=== PATIENT | female | born 1985 | race Caucasian/White ===

== ENCOUNTER 2022-10-23 01:20 | Emergency (ER) | payer OTHER ==
[2022-10-23 01:32] VITALS: BP 139/82; PULSE 80; RESP 16; TEMP 97.4
[2022-10-23] MEDS ORDERED: CEPHALEXIN 500 MG CAP PO STA (01:49)
--- NOTE | 2022-10-23 01:51 | ED ---
General Adult HPI - General Chief complaint: Extremity Problem,Nontraumatic Stated complaint: r leg infection Time Seen by Provider: 10/23/22 01:32 Source: patient Mode of arrival: ambulatory Limitations: no limitations - History of Present Illness Initial comments: This is a 37-year-old female with no past medical history presents emergency department for pain and swelling noted to the posterior aspect of her right upper leg. The patient stated that she had a cyst in this area over the last several years but stated over the last several days became more painful and over the last 1 day became tender to touch. The patient was reading online and said that it might cause her to so she came into the emergency department. The patient denied any fevers, chills as well as any nausea and vomiting. The patient stated that the cyst became more swollen and did start draining minimal purulent fluid today. The patient denied any other acute pain or complaints at this time. - Related Data Previous Rx's Medication Instructions Recorded Cephalexin [Keflex] 500 mg PO Q6HR 1 Days #20 cap 10/23/22 Allergies Allergy/AdvReac Type Severity Reaction Status Date / Time No Known Allergies Allergy Verified 10/23/22 01:32 Review of Systems ROS Statement: Those systems with pertinent positive or pertinent negative responses have been documented in the HPI. ROS Other: All systems not noted in ROS Statement are negative. Past Medical History Past Medical History: No Reported History Past Surgical History: No Surgical Hx Reported Past Psychological History: No Psychological Hx Reported Smoking Status: Current every day smoker Past Alcohol Use History: Rare Past Drug Use History: None Reported General Exam Limitations: no limitations General appearance: alert, in no apparent distress Head exam: Present: atraumatic, normocephalic, normal inspection Eye exam: Present: normal appearance, PERRL Pupils: Present: normal accommodation ENT exam: Present: normal exam, normal oropharynx, mucous membranes moist Neck exam: Present: normal inspection, full ROM Respiratory exam: Present: normal lung sounds bilaterally Cardiovascular Exam: Present: regular rate, normal rhythm, normal heart sounds GI/Abdominal exam: Present: soft, normal bowel sounds Extremities exam: Present: full ROM, other (2cm circular cyst noted to the p osterior aspect of the right lower leg with surrounding erythema and induration. There was also minimal purulent drainage noted from the central area. There was also tenderness noted.) Back exam: Present: normal inspection, full ROM Neurological exam: Present: alert, oriented X3, CN II-XII intact Psychiatric exam: Present: normal affect, normal mood Skin exam: Present: warm, dry Course Vital Signs 10/23/22 01:25 Temperature 97.4 F L Pulse Rate 80 Respiratory 16 Rate Blood Pressure 139/82 O2 Sat by Pulse 99 Oximetry Medical Decision Making - Medical Decision Making Was pt. sent in by a medical professional or institution ([facility], [employer] MANAGER, urgent care, hospital, or residential...) When possible be specific @ -No Did you speak to anyone other than the patient for history (EMS, parent, family, police, friend...)? What history was obtained from this source @ -No Did you review nursing and triage notes (agree or disagree)? Why? @ -I reviewed and agree with nursing and triage notes Were old charts reviewed (outside hosp., previous admission, EMS record, old EKG, old radiological studies, urgent care reports/EKG's, residential records)? Report findings @ -No old charts were reviewed Differential Diagnosis (chest pain, altered mental status, abdominal pain women, abdominal pain men, vaginal bleeding, weakness, fever, dyspnea, syncope, headache, dizziness, GI bleed, back pain, seizure, CVA, palpatations, mental health)? @ -Abscess, cellulitis, contusion EKG interpreted by me (3pts min.). @ -None X-rays interpreted by me (1pt min.). @ -None done CT interpreted by me (1pt min.). @ -None done U/S interpreted by me (1pt. min.). @ -A bedside ultrasound was performed by myself and showed a cystic structure without any noted abscess. There was cobblestoning surrounding the abscess consistent with cellulitis. What testing was considered but not performed or refused? (CT, X-rays, U/S, labs)? Why? @ -None What meds were considered but not given or refused? Why? @ -None Did you discuss the management of the patient with other professionals (professionals i.e. [facility]ene, NATURAL RESOURCE MANAGER, lab, RT, psych nurse, social staff worker, steward/stewardess lounge, teacher, tax compliance officer, bottle caser)? Give summary @ -No Was smoking cessation discussed for >3mins.? @ -No Was critical care preformed (if so, how long)? @ -No Were there social determinants of health that impacted care today? How? (Homelessness, low income, unemployed, alcoholism, drug addiction, tr ansportation, low edu. Level, literacy, decrease access to med. care, detention, rehab)? @ -No Was there de-escalation of care discussed even if they declined (Discuss DNR or withdrawal of care, Hospice)? DNR status @ -No What co-morbidities impacted this encounter? (DM, HTN, Smoking, COPD, CAD, Cancer, CVA, ARF, Chemo, Hep., AIDS, mental health diagnosis, sleep apnea, morbid obesity)? @ -None Was patient admitted / discharged? Hospital course, mention meds given and route, prescriptions, significant lab abnormalities, going to OR and other pertinent info. @ -The patient was seen and evaluated emergency department. Physical exam, the patient was resting in bed without any acute distress. Vital signs admission were stable. A bedside ultrasound was performed by myself and the area in question showed signs consistent with cellulitis and did not have any signs of abscess. The patient had continued minimal purulent discharge from the central area. The patient denied any further acute complaints and was given a dose of Keflex in the emergency department. The patient was also advised to take the prescribed medication including Keflex for continued treatment. The patient was advised report back to the emergency department if the pain became worse and to follow-up with her primary care physician. The patient was agreeable to this and all her questions were answered. The patient was discharged home in stable condition. Undiagnosed new problem with uncertain prognosis? @ -No Drug Therapy requiring intensive monitoring for toxicity (Heparin, Nitro, Insulin, Cardizem)? @ -No Were any procedures done? @ -No Diagnosis/symptom? @ -Right posterior leg cellulitis Acute, or Chronic, or Acute on Chronic? @ -Acute on chronic Uncomplicated (without systemic symptoms) or Complicated (systemic symptoms)? @ -Uncomplicated Side effects of treatment? @ -No Exacerbation, Progression, or Severe Exacerbation? @ -No Poses a threat to life or bodily function? How? (Chest pain, USA, PA, pneumonia, PE, COPD, DKA, ARF, appy, cholecystitis, CVA, Diverticulitis, Homicidal, Suicidal, threat to staff... and all critical care pts) @ -No Disposition Clinical Impression: Cellulitis Disposition: HOME SELF-CARE Condition: Stable Instructions (If sedation given, give patient instructions): Cellulitis (ED) Prescriptions: Cephalexin [Keflex] 500 mg PO Q6HR 1 Days #20 cap Is patient prescribed a controlled substance at d/c from ED?: No Referrals: None,Stated [Primary Care Provider] - 1-2 days Time of Disposition: 01:45
== END 2022-10-23 02:00 | disposition home or self-care (01) ==
LOC: EC 01:20
DX: L03.115 Cellulitis of right lower limb (principal); F17.200 Nicotine dependence, unspecified, uncomplicated
CPT/HCPCS: 99282